=== PATIENT | male | born 1950 | race Caucasian/White ===

== ENCOUNTER 2016-06-11 11:36 | Emergency (ER) | payer OTHER ==
[~2016-06-11] VITALS: Ht 182.9 cm; Wt 96.3 kg
[~2016-06-11 11:36] MED LIST: ANTIVERT25 MG PO; BACLOFEN20 MG PO; CARBAMAZEPINE200 MG PO; COMBIVENT RESPIM4 GM IH; DILAUDID2 MG PO; GABAPENTIN600 MG PO; INDOCIN50 MG PO; KEFLEX500 MG PO; MONTELUKAST SOD10 MG PO; NITROSTAT0.4 MG SL; PERCOCET 7.51 TABLET PO; PROTONIX40 MG PO; PYRIDIUM100 MG PO; SKELAXIN800 MG PO; SPIRIVA1 INHALATI IH; TAMSULOSIN HCL0.4 MG PO; TIZANIDINE HCL4 MG PO; VALIUM2 MG PO; VENTOLIN HFA18 GM IH; VITAMIN B-6100 MG PO; VITAMIN B12 IM; ZOFRAN4 MG PO
[2016-06-11 15:32] VITALS: BP 144/75
== END 2016-06-11 15:52 | disposition home or self-care (01) ==
LOC: EME 11:36
DX: S60.512A Abrasion of left hand, initial encounter (principal); S61.432A Puncture wound without foreign body of left hand, initial encounter; W55.03XA Scratched by cat, initial encounter; Z23 Encounter for immunization
CPT/HCPCS: 99281; 99285

== ENCOUNTER 2016-06-18 09:56 | Emergency (ER) | payer OTHER ==
[~2016-06-18] VITALS: Ht 182.9 cm; Wt 95.1 kg
[2016-06-18 10:01] VITALS: BP 132/83
== END 2016-06-18 11:15 | disposition home or self-care (01) ==
LOC: EME 09:56
PROC: 3E0234Z Introduction of Serum, Toxoid and Vaccine into Muscle, Percutaneous Approach (ICD-10-PCS; principal; 2016-06-18)
DX: Z20.3 Contact with and (suspected) exposure to rabies (principal)
CPT/HCPCS: 99281; 99283

== ENCOUNTER 2016-07-07 11:54 | Emergency (ER) | payer OTHER ==
[~2016-07-07] VITALS: Ht 182.9 cm; Wt 91.7 kg
[2016-07-07 13:01] LABS: EOSINOPHIL COUNT 0.1 K/uL (0-0.3); HEMATOCRIT 40.7 % (38.0-50.0); IMMATURE GRANULOCYTE (%) 0.3 % (0.0-0.7); IMMATURE GRANULOCYTE COUNT 0.2 K/uL; MCHC 33.4 G/DL (30.0-36.0); MCV 92.7 FL (86-99); MEAN PLAT.VOLUME 11.1 uM^3 (9.0-12.4); MONOCYTE (%) 7.5 % (3-12); MONOCYTE COUNT 0.5 K/uL (0-0.8); NEUTROPHIL (%) 76.6 % (45-76); NEUTROPHIL COUNT 5.1 K/uL (1.8-6.4); PLATELET COUNT 136 K/uL (156-360); RBC DIS.WIDTH-CV 12.1 % (11.8-14.6); RBC DIS.WIDTH-SD 40.2 % (39-53); RED BLOOD COUNT 4.39 M/uL (4.00-5.50); WHITE BLOOD COUNT 6.7 K/uL (4.1-10.2)
[2016-07-07 13:10] LABS: CHLORIDE 105 mEq/L (99-109); POTASSIUM 4.3 mEq/L (3.7-5.4); SODIUM 139 mEq/L (136-147)
[2016-07-07 13:13] LABS: GLUCOSE 96 mg/dL (70-99)
[2016-07-07 13:14] LABS: ANION GAP 11 MEQ/L (2-14)
[2016-07-07 13:15] LABS: TOTAL BILIRUBIN 0.5 mg/dL (0.0-1.0)
[2016-07-07 13:16] LABS: ALKALINE PHOSPHATASE 64 IU/L (3-129); GFR ESTIMATE (CALCULATED) > 59 mL/min/
[2016-07-07 13:17] LABS: UREA NITROGEN (BUN) 23 mg/dL (9-23)
[2016-07-07 13:29] LABS: ADD MIUA? NO; BILIRUBIN NEGATIVE; BLOOD NEGATIVE; COLOR DK YELLOW ((YELLOW)); GLUCOSE (STRIP) NEGATIVE; KETONES NEGATIVE; LEUKOCYTES NEGATIVE; NITRITE NEGATIVE; PH, URINE 5.5 (5-8); PROTEIN (STRIP) NEGATIVE; SPECIFIC GRAVITY 1.031 (1.000-1.030); UROBILINOGEN 0.2 MG/DL (0.2-1.0)
[2016-07-07] MEDS ORDERED: ZOFRAN ODT8 MG PO (13:43)
[2016-07-07] MEDS ORDERED: CARAFATE1 GM PO (13:43)
[2016-07-07 13:47] VITALS: BP 125/82
== END 2016-07-07 13:53 | disposition home or self-care (01) ==
LOC: EME 11:54
PROVIDERS: Physician Assistant
DX: R11.2 Nausea with vomiting, unspecified (principal); R19.7 Diarrhea, unspecified; R10.9 Unspecified abdominal pain; Z88.0 Allergy status to penicillin; Z91.041 Radiographic dye allergy status
CPT/HCPCS: 74176; 80053; 81003; 85025; 99281; 99284

== ENCOUNTER 2016-07-24 23:25 | Emergency (ER) | payer OTHER ==
[~2016-07-24] VITALS: Ht 182.9 cm; Wt 92.4 kg
[~2016-07-24 23:25] MED LIST changes: +CARAFATE1 GM PO; +ZOFRAN ODT8 MG PO
[2016-07-25 01:27] LABS: EOSINOPHIL (%) 4.4 % (0-5); EOSINOPHIL COUNT 0.3 K/uL (0-0.3); IMMATURE GRANULOCYTE (%) 0.2 % (0.0-0.7); IMMATURE GRANULOCYTE COUNT 0.1 K/uL; LYMPHOCYTE COUNT 1.2 K/uL (1.0-2.8); MCH 30.7 PG (29.0-34.0); MCHC 33.1 G/DL (30.0-36.0); MCV 92.9 FL (86-99); MEAN PLAT.VOLUME 10.9 uM^3 (9.0-12.4); MONOCYTE (%) 6.6 % (3-12); MONOCYTE COUNT 0.4 K/uL (0-0.8); NEUTROPHIL (%) 70.5 % (45-76); NEUTROPHIL COUNT 4.7 K/uL (1.8-6.4); PLATELET COUNT 136 K/uL (156-360); RBC DIS.WIDTH-CV 12.1 % (11.8-14.6); RBC DIS.WIDTH-SD 40.4 % (39-53); WHITE BLOOD COUNT 6.6 K/uL (4.1-10.2)
[2016-07-25 01:39] LABS: CHLORIDE 106 mEq/L (99-109); POTASSIUM 4.3 mEq/L (3.7-5.4); SODIUM 139 mEq/L (136-147)
[2016-07-25 01:41] LABS: GLUCOSE 100 mg/dL (70-99)
[2016-07-25 01:43] LABS: ANION GAP 6 MEQ/L (2-14); TOTAL BILIRUBIN 0.5 mg/dL (0.0-1.0)
[2016-07-25 01:45] LABS: ALKALINE PHOSPHATASE 57 IU/L (3-129); GFR ESTIMATE (CALCULATED) > 59 mL/min/
[2016-07-25 01:46] LABS: UREA NITROGEN (BUN) 24 mg/dL (9-23)
[2016-07-25 01:48] LABS: LIPASE 27 U/L (1.0-51.0)
[2016-07-25 02:00] LABS: ADD MIUA? NO; BILIRUBIN NEGATIVE; BLOOD NEGATIVE; COLOR YELLOW ((YELLOW)); GLUCOSE (STRIP) NEGATIVE; KETONES NEGATIVE; LEUKOCYTES NEGATIVE; NITRITE NEGATIVE; PH, URINE 6.5 (5-8); PROTEIN (STRIP) NEGATIVE; SPECIFIC GRAVITY 1.013 (1.000-1.030); UCUL ADDED? NO; UROBILINOGEN 0.2 MG/DL (0.2-1.0)
[2016-07-25] MEDS ORDERED: CIPRO500 MG PO (02:16)
[2016-07-25] MEDS ORDERED: ZOFRAN ODT4 MG PO (02:16)
[2016-07-25] MEDS ORDERED: FLAGYL500 MG PO (02:16)
[2016-07-25 02:29] VITALS: BP 142/78
== END 2016-07-25 02:30 | disposition home or self-care (01) ==
LOC: EME 23:25
PROVIDERS: Emergency Medicine
DX: K57.92 Diverticulitis of intestine, part unspecified, without perforation or abscess without bleeding (principal); R20.2 Paresthesia of skin; Z88.0 Allergy status to penicillin; Z91.041 Radiographic dye allergy status
CPT/HCPCS: 72131; 74176; 80053; 81003; 83690; 85025; 99281; 99284

== ENCOUNTER 2016-07-27 17:06 | Inpatient (IN) | payer OTHER ==
[~2016-07-27] VITALS: Ht 182.9 cm; Wt 90.9 kg
[~2016-07-27 17:06] MED LIST changes: +CIPRO500 MG PO; +FLAGYL500 MG PO; +ZOFRAN ODT4 MG PO
[2016-07-27 17:31] LABS: HEMATOCRIT 39.9 % (38.0-50.0); MCH 30.2 PG (29.0-34.0); MCHC 32.8 G/DL (30.0-36.0); MCV 91.9 FL (86-99); PLATELET COUNT 132 K/uL (156-360); RBC DIS.WIDTH-CV 12.2 % (11.8-14.6); RBC DIS.WIDTH-SD 40.1 % (39-53); RED BLOOD COUNT 4.34 M/uL (4.00-5.50); WHITE BLOOD COUNT 6.3 K/uL (4.1-10.2)
[2016-07-27 17:38] LABS: CHLORIDE 109 mEq/L (99-109); POTASSIUM 4.3 mEq/L (3.7-5.4); SODIUM 141 mEq/L (136-147)
[2016-07-27 17:41] LABS: GLUCOSE 92 mg/dL (70-99)
[2016-07-27 17:42] LABS: ANION GAP 9 MEQ/L (2-14)
[2016-07-27 17:43] LABS: TOTAL BILIRUBIN 0.6 mg/dL (0.0-1.0)
[2016-07-27 17:44] LABS: ALKALINE PHOSPHATASE 58 IU/L (3-129); GFR ESTIMATE (CALCULATED) > 59 mL/min/
[2016-07-27 17:45] LABS: UREA NITROGEN (BUN) 20 mg/dL (9-23)
[2016-07-27 19:22] LABS: C DIFF TOXIN NEGATIVE (NEGATIVE)
[2016-07-27 19:24] LABS: PROBE CHECK PASS; SPECIMEN PROCESSING CONTROL PASS
[2016-07-27 19:59] LABS: ADD MIUA? NO; BILIRUBIN NEGATIVE; BLOOD NEGATIVE; COLOR STRAW ((YELLOW)); GLUCOSE (STRIP) NEGATIVE; KETONES NEGATIVE; LEUKOCYTES NEGATIVE; NITRITE NEGATIVE; PROTEIN (STRIP) NEGATIVE; UCUL ADDED? NO; UROBILINOGEN 0.2 MG/DL (0.2-1.0)
[2016-07-27] MEDS ORDERED: CYANOCOBAL1000 MCG/2 IM (20:01)
[2016-07-27] MEDS ORDERED: TAMSULOSIN HCL0.4 MG PO (20:02)
[2016-07-27] MEDS ORDERED: ATORVASTATIN CA40 MG PO (20:02)
[2016-07-27] MEDS ORDERED: VENTOLIN HFA18 GM IH (20:02)
[2016-07-27] MEDS ORDERED: PANTOPRAZOLE SO40 MG PO (20:03)
[2016-07-27] MEDS ORDERED: COMBIVENT RESPIM4 GM IH (20:03)
[2016-07-27] MEDS ORDERED: NITROSTAT0.4 MG SL (20:03)
[2016-07-27] MEDS ORDERED: SINGULAIR10 MG PO (20:03)
[2016-07-27 23:02] VITALS: BP 134/82
[2016-07-28 09:31] VITALS: BP 111/58
[2016-07-28 15:00] VITALS: BP 102/62
[2016-07-28 23:17] VITALS: BP 99/61
[2016-07-29 08:07] VITALS: BP 122/67
[2016-07-29 16:40] VITALS: BP 133/77
[2016-07-29 22:54] VITALS: BP 129/81
[2016-07-30 10:24] VITALS: BP 157/74
[2016-07-30] MEDS ORDERED: GABAPENTIN100 MG PO (11:57)
== END 2016-07-30 13:11 | disposition home or self-care (01) | DRG 392 ==
LOC: EME 17:06 → 5EAST 21:18 → EDOF 21:18 → 5EAST 22:38
PROVIDERS: Physician Assistant
DX: K57.32 Diverticulitis of large intestine without perforation or abscess without bleeding (principal); K25.9 Gastric ulcer, unspecified as acute or chronic, without hemorrhage or perforation; J45.909 Unspecified asthma, uncomplicated; K21.9 Gastro-esophageal reflux disease without esophagitis; E78.5 Hyperlipidemia, unspecified; N40.0 Benign prostatic hyperplasia without lower urinary tract symptoms; M48.02 Spinal stenosis, cervical region; Z98.84 Bariatric surgery status; Z88.0 Allergy status to penicillin; Z91.041 Radiographic dye allergy status
CPT/HCPCS: 74174; 80053; 81003; 85027; 87493; 87506; 94640; 94640 76; 99202; 99281; 99285; J0744; J1170; J1200; J2270; J2405; J2930; J3010; J7030; S0030

== ENCOUNTER 2016-09-25 12:27 | Emergency (ER) | payer OTHER ==
[~2016-09-25] VITALS: Ht 182.9 cm; Wt 98.7 kg
[~2016-09-25 12:27] MED LIST changes: +ATORVASTATIN CA40 MG PO; +CYANOCOBAL1000 MCG/2 IM; +GABAPENTIN100 MG PO; +PANTOPRAZOLE SO40 MG PO; +SINGULAIR10 MG PO
[2016-09-25 13:59] LABS: HEMATOCRIT 40.5 % (38.0-50.0); MCH 30.2 PG (29.0-34.0); MCHC 32.8 G/DL (30.0-36.0); MEAN PLAT.VOLUME 11.1 uM^3 (9.0-12.4); PLATELET COUNT 130 K/uL (156-360); RBC DIS.WIDTH-SD 44.2 % (39-53); WHITE BLOOD COUNT 6.4 K/uL (4.1-10.2)
[2016-09-25 14:14] LABS: CHLORIDE 108 mEq/L (99-109); POTASSIUM 4.4 mEq/L (3.7-5.4); SODIUM 140 mEq/L (136-147)
[2016-09-25 14:16] LABS: GLUCOSE 171 mg/dL (70-99)
[2016-09-25 14:17] LABS: ANION GAP 9 MEQ/L (2-14)
[2016-09-25 14:20] LABS: GFR ESTIMATE (CALCULATED) > 59 mL/min/; UREA NITROGEN (BUN) 17 mg/dL (9-23)
[2016-09-25 14:25] LABS: TROP-I INTERPRETATION NEGATIVE; TROPONIN-I < 0.01 ng/mL (0.0-0.30)
[2016-09-25 15:01] VITALS: BP 131/105
== END 2016-09-25 15:01 | disposition left against medical advice (07) ==
LOC: EME 12:27
DX: M62.81 Muscle weakness (generalized) (principal); J45.909 Unspecified asthma, uncomplicated; G89.29 Other chronic pain; K21.9 Gastro-esophageal reflux disease without esophagitis; Z53.29 Procedure and treatment not carried out because of patient's decision for other reasons; Z87.440 Personal history of urinary (tract) infections; Z90.49 Acquired absence of other specified parts of digestive tract; Z98.84 Bariatric surgery status
CPT/HCPCS: 71020; 80048; 84484; 85027; 93005; 99281; 99283

== ENCOUNTER 2016-11-04 10:07 | Emergency (ER) | payer OTHER ==
[~2016-11-04] VITALS: Ht 182.9 cm; Wt 98.1 kg
[2016-11-04] MEDS ORDERED: TRAMADOL HCL50 MG PO (11:23)
[2016-11-04 11:41] VITALS: BP 129/78
== END 2016-11-04 11:42 | disposition home or self-care (01) ==
LOC: EME 10:07
DX: M25.511 Pain in right shoulder (principal); W01.0XXA Fall on same level from slipping, tripping and stumbling without subsequent striking against object, initial encounter; Y92.009 Unspecified place in unspecified non-institutional (private) residence as the place of occurrence of the external cause; M19.011 Primary osteoarthritis, right shoulder; E78.00 Pure hypercholesterolemia, unspecified
CPT/HCPCS: 73030; 99281; 99283; J1885